=== PATIENT | female | born 1985 | race Caucasian/White ===

== ENCOUNTER 2019-04-08 01:32 | Emergency (ER) | payer MEDICAID ==
[~2019-04-08] VITALS: Ht 162.6 cm; Wt 116.1 kg
[2019-04-08 01:32] VITALS: BP_SYST 153
[2019-04-08 02:00] VITALS: BP_SYST 146
== END 2019-04-08 02:00 | disposition home or self-care (01) ==
LOC: SED 01:32
DX: Z02.89 Encounter for other administrative examinations (principal); I10 Essential (primary) hypertension
CPT/HCPCS: 99283

== ENCOUNTER 2023-03-28 11:31 | Emergency (ER) | payer MEDICAID ==
[~2023-03-28] VITALS: Ht 165.1 cm; Wt 154.2 kg
--- NOTE | 2023-03-28 11:35 | NUR ---
Placed in room 03 . Placed on clinical research monitor, blood pressure machine and pulse oximeter. To gown for exam. Side rails up.
[2023-03-28 11:39] VITALS: BP_SYST 130; PULSE 104; RESP 20; TEMP 98.3; O2SAT 98
[2023-03-28] MEDS ORDERED: IBUPROFEN 600 MG TABLET PO ONE (11:45)
--- NOTE | 2023-03-28 11:54 | NUR ---
Pt brought by self, ambulatory, A&Ox4, pt presents to ER with R knee pain after falling 8 months ago, no trauma, skin pink and warm, cap refill <3, VSS.
[2023-03-28] MEDS ORDERED: TRAM50TA2 PO (12:29)
--- NOTE | 2023-03-28 12:45 | NUR ---
Patient given written and verbal discharge instructions and verbalizes understanding. ER MD discussed with patient the results and treatment provided. Patient in stable condition. ID arm band removed. IV catheter removed intact and dressing applied, no active bleeding. Rx of Tramadol given. Patient educated on pain management and to follow up with PMD. Pain Scale 0. Opportunity for questions provided and answered. Medication side effect fact sheet provided.
== END 2023-03-28 12:45 | disposition home or self-care (01) ==
LOC: SED 11:31
DX: S83.91XA Sprain of unspecified site of right knee, initial encounter (principal); Z79.899 Other long term (current) drug therapy; X58.XXXA Exposure to other specified factors, initial encounter; Y93.89 Activity, other specified; Y92.89 Other specified places as the place of occurrence of the external cause; Y99.8 Other external cause status
CPT/HCPCS: 73564; 99283